=== PATIENT | female | born 1940 | race Caucasian/White ===

== ENCOUNTER 2019-05-16 05:23 | Inpatient (IN) ==
[2019-05-16] MEDS ORDERED: ICU PROTOCOL FOR HYPERGLYCEMIA PRN (07:18)
[2019-05-16] MEDS ORDERED: LABETALOL HCL IV 5 MG/ML 20ML IV STA (07:22)
[2019-05-16] MEDS ORDERED: AMLODIPINE BESYLATE 5 MG TAB PO SCH (09:00)
--- NOTE | 2019-05-16 09:09 | History & Physical Report ---
Date of Service May 16, 2019 Assessment & Plan (1) Hypertensive urgency: blood pressure much improved this AM, received a dose of Labetalol on arrival will start on Norvasc 5mg daily, monitor response, may need to give repeat dose later today use Hydralazine PRN transfer to PCU this morning (2) Right renal mass: 7.7 x 8.0 cm mass on right kidney, abutting the liver presented with hematuria and right flank pain discussed with patient that this would be considered cancer until proven otherwise will consult urology for their recommendations will allow her to eat as there are no immediate surgical issues UA with urine cytology ordered History of Present Illness Chief Complaint: I had blood in my urine Primary Care Provider: MIRTHA PCP 78 yo female with history of glaucoma but otherwise healthy, presented to the ED at [facility] due to right flank pain and blood in her urine. The symptoms started two days prior to her arrival. She said that prior to that she had been doing well, no issues. Her blood pressure will occasionally be high in the doctor's office but she did not have a history of essential HTN. In the ED at [place] her blood pressures were markedly elevated with SBP in the 250-270 range and DBP > 120. She was admitted and treated with Labetalol. She admitted to having a headache with the elevated blood pressure. No changes in vision, no chest pain, no dyspnea. She had a CT of her abdomen/pelvis due to the right flank pain and hematuria. This showed a 7.7 x 8.0 cm mass in the right kidney, abutting the liver, possible liver nodules at that location. Due to renal mass and no urological services, patient and family requested transfer to [facility]. Here in the ICU she is feeling well, denies headache, chest pain, dyspnea, cough, abdominal pain, NVD, peripheral edema, fever/chills/sweats. Her BP is improved to 150-170 systolic. We discussed the recent events and she confirmed that she only had the hematuria and right flank pain for two days, she had been feeling well up until that time. Medical history significant for glaucoma Surgical history significant for hysterectomy 30 years ago No history of smoking or daily alcohol intake Allergies Allergy/AdvReac Type Severity Reaction Status Date / Time chicken derived Allergy Mild dry Verified 05/16/19 07:37 throat, SOB potato Allergy dry Verified 05/16/19 07:18 throat, SOB Home Medications Home Medications Medication Instructions Recorded Confirmed Type brimonidine 1 drp OPHTHALMIC (EYE) BID 05/16/19 05/16/19 History cholecalciferol (vitamin D3) 1,000 unit PO DAILY 05/16/19 05/16/19 History dorzolamide-timolol 1 drp OPHTHALMIC (EYE) BID 05/16/19 05/16/19 History latanoprost 1 drp OPHTHALMIC (EYE) QPM 05/16/19 05/16/19 History multivitamin 1 tab PO DAILY 05/16/19 05/16/19 History omega 3-uns-qir-fish oil [[place]-3] 1 cap PO DAILY 05/16/19 05/16/19 History peg 400-propylene glycol [Systane 1 drp OPHTHALMIC (EYE) QID 05/16/19 05/16/19 History (propylene glycol)] Past Med/Surg History Medical History (Updated 05/16/19 @ 09:08 by Darren Verde DO) Glaucoma Surgical History (Updated 05/16/19 @ 07:26 by Monserrat Christensen RN) History of hysterectomy Family History (Updated 05/16/19 @ 07:27 by Monserrat Christensen RN) Mother Cancer Father Cancer Social History Preferred Language: Belarusian Communication Ability: Effective 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: No Beliefs That Will Affect Care: None Current Living Situation: Alone Other Information That Helps Us Care for You: No Feels Safe at Home: Yes Safety Concerns: Feels Safe At This Time Smoking Status: Never smoker Hx Alcohol Use: No Hx Substance Use: No Review of Systems Review of Systems: All systems reviewed & are unremarkable except as noted in HPI & below Physical Exam Constitutional: WD/WN, vitals as above Eyes: PERRL, conjunctivae normal, anicteric sclerae ENMT: external ear and nose normal, oropharynx normal Neck: trachea midline, no thyromegaly Respiratory: normal respiratory effort, lungs clear to auscultation Cardiovascular: RRR, no murmur, no edema Gastrointestinal (Abdomen): Inspection/Auscultation: abdomen normal to inspection and normal bowel sounds; abdomen not distended Percussion/Palpation: + abdomen tender (mild TTP in RUQ) and abdomen soft; no guarding, abdomen not rigid and no hepatosplenomegaly Musculoskeletal: no cyanosis or clubbing, extremities motor strength 5/5 Skin: no rashes, warm and dry Neurologic: patellar DTR's 2+ bilat, sensation intact and PERRL, EOMI, accommodation nl, no face palsy, no dysarthria Psychiatric: A+Ox3, euthymic affect Genitourinary: + CVA tenderness (mild on right) Lymphatic: no cervical or axillary lymphadenopathy Results & Data Vital Signs (Past 12 Hours) Vital Signs Pulse Pulse Resp BP BP Pulse Ox 05/16/19 08:01 77 27 H 95 05/16/19 08:00 78 21 158/105 H 94 05/16/19 07:50 76 19 95 05/16/19 07:45 81 27 H 195/81 H 95 05/16/19 07:42 77 19 195/90 H 96 05/16/19 07:40 76 17 95 05/16/19 07:31 80 20 96 05/16/19 07:30 82 24 203/82 H 95 05/16/19 07:20 79 19 95 05/16/19 07:18 78 24 95 05/16/19 07:15 80 19 192/83 H 95 05/16/19 07:08 77 22 191/93 H 95 Code Status & VTE Plan VTE Prophylaxis Plan VTE Prophylaxis will be ordered: Yes PG Care Time/CCT Total # of Minutes Spent Total Time Spent with Patient: Total time spent is greater than 50% in coordination of care (as documented) at patient's floor/unit and/or counseling patient:
--- NOTE | 2019-05-16 09:34 | Critical Care Consultation ---
Date of Consultation May 16, 2019 Assessment & Plan (1) Admitted to intensive care unit: Reason Critically Ill: 78-year-old female here for hypertensive urgency, right flank pain, newly discovered right renal mass. Past medical history significant for glaucoma Neuro: -[facility] ICU: NEGATIVE -No concerns at present, mentating well, no vision, hearing, sensory, motor abnormalities Cardiac: Hypertensive urgency: Per report systolic blood pressures were in the 270s and diastolics were greater than 120 at the outside hospital. She was supposedly treated with labetalol and failed to respond. In the [facility] ICU she was given labetalol 10 mg IV and hydralazine and her pressures responded well. Currently she is 158/105 -Start amlodipine 5 mg p.o. daily Elevated troponin: Patient with elevated troponin at the outside hospital without significant EKG changes. Repeat troponin obtained in our hospital still elevated at 1.350 suspect likely secondary to demand ischemia -Trend troponins Elevated BNP: Likely secondary to patient demographics elderly female. No overt signs or symptoms of heart failure. -Monitor for now Respiratory: -No concerns GI: -No concerns RENAL/LYTES: -No significant electrolyte derangement. -Replace lytes as needed. Renal mass: Depending upon anatomical location may be pressing on her adrenal gland resulting in elevated blood pressures. Will need urology consult -Consult urology : -As above ENDO: -No concerns at present HEME: -Stable H&H. ID: - No concerns for infection at this point. -Monitor fever curve. LINES/IV ACCESS: -PIVs intact. DVT PROPHYLAXIS: -SCD's Dispo: Downgrade to general medical floors Thank you for allowing us to be part of this patient's care. Please refer to Dr. Oh's documentation for any further recommendations. Supervising Physician Co-Signing Physician Notes Dr. Barrera was the resident-physician during care of patient. I separately evaluated patient for tucker portions of the history and the exam. I was present during the critical portion of medical decision making, and I discussed the case with the resident. I generally agree with the findings and plan except for any additions/exceptions noted. Patient was transferred to our hospital due to concerns of hypertensive emergency/urgency. Patient's blood pressure improved nicely with labetalol. She does have a mass on her right kidney with possible evidence of metastatic disease which we are suspecting of the renal cell carcinoma. She did have some hematuria at the outside hospital, but apparently this is resolved. We will r epeat a urine analysis and a basic metabolic panel here. We have ordered for 5 mg of amlodipine to be given daily. She also has a troponin elevation that we will continue to trend. EKG with no obvious evidence of acute ischemia. This is likely related to her hypertension. Will consult cardiology. Urology is consulted for the mass. Patient is safe to be transferred to the floor with telemetry. History of Present Illness Attending Physician: Darren Verde DO History of Present Illness 78-year-old female with a with no significant past medical history with exception of glaucoma. She presented to the emergency department in [facility] ED on 05/14 status post hematuria for 2 days with associated right flank plain. Patient reports no issues prior to this, she had been her normal state of health, and feeling well. When she has her blood pressure measured in the doctor's office it will occasionally be high secondary to self diagnosed whitecoat hypertension. In the [place] emergency department her blood pressure was elevated to 250/120. She was admitted and treated with labetalol without significant response. On admission she endorsed a headache with associated elevated blood pressure. No change in vision, no chest pain, no dyspnea, no dysarthria, no other concerning signs or symptoms. A CT was performed of her abdomen and pelvis secondary to the right flank pain and hematuria. Demonstrating a 7.7 x 8 centimeter mass on the right kidney. She was transferred to [facility] secondary to the suspected renal mass, and hypertensive urgency. In the ICU she is doing well, denies chest pain, dyspnea, cough, abdominal pain, nausea vomiting diarrhea, change in vision, change in hearing, motor symptoms, sensory symptoms, she does endorse a slight headache that was relieved with Tylenol. She is tolerating her diet, voiding on her own, stooling on her own, slept okay overnight. All questions answered no acute concerns Allergies Allergy/AdvReac Type Severity Reaction Status Date / Time chicken derived Allergy Mild dry Verified 05/16/19 07:37 throat, SOB potato Allergy dry Verified 05/16/19 07:18 throat, SOB Home Medications Home Medications Medication Instructions Recorded Confirmed Type brimonidine 1 drp OPHTHALMIC (EYE) BID 05/16/19 05/16/19 History cholecalciferol (vitamin D3) 1,000 unit PO DAILY 05/16/19 05/16/19 History dorzolamide-timolol 1 drp OPHTHALMIC (EYE) BID 05/16/19 05/16/19 History latanoprost 1 drp OPHTHALMIC (EYE) QPM 05/16/19 05/16/19 History multivitamin 1 tab PO DAILY 05/16/19 05/16/19 History omega 9-fah-rxj-fish oil [[place]-3] 1 cap PO DAILY 05/16/19 05/16/19 History peg 400-propylene glycol [Systane 1 drp OPHTHALMIC (EYE) QID 05/16/19 05/16/19 History (propylene glycol)] Patient History Medical History Glaucoma Surgical History History of hysterectomy Family History Mother Cancer Father Cancer Social History Preferred Language: Surinamese Communication Ability: Effective Mucker Operator Required: No Beliefs That Will Affect Care: None Current Living Situation: Alone Other Information That Helps Us Care for You: No Feels Safe at Home: Yes Safety Concerns: Feels Safe At This Time Smoking Status: Never smoker Hx Alcohol Use: No Hx Substance Use: No Physical Exam Physical Exam: General: No acute distress HEENT: Normocephalic atraumatic Neck: No significant lymphadenopathy, trachea midline, normal to visual inspection Cardiac: Regular rate and rhythm, normal S1, normal S2, I did not appreciated any significant murmurs rubs or gallops, I did not appreciate any significant pedal edema, No calf tenderness, capillary refill is less than 3 seconds Respiratory: Clear to auscultation bilaterally with symmetrical chest rise, I did not appreciate any significant wheezes, rales, rhonchi, no increased work of breathing GI: Tender to palpation right upper quadrant/flank normal bowel sounds, soft, nontender MSK: No sensory or motor changes, moves all extremities without issue, extremities are warm and well-perfused Skin: [place], clean, dry, intact. Neuro: Alert and oriented x4 Psych: Calm, cooperative, logical thought process Results & Data Vital Signs (Past 12 Hours) Vital Signs Pulse Pulse Resp BP BP Pulse Ox 05/16/19 08:01 77 27 H 95 05/16/19 08:00 78 21 158/105 H 94 05/16/19 07:50 76 19 95 05/16/19 07:45 81 27 H 195/81 H 95 05/16/19 07:42 77 19 195/90 H 96 05/16/19 07:40 76 17 95 05/16/19 07:31 80 20 96 05/16/19 07:30 82 24 203/82 H 95 05/16/19 07:20 79 19 95 05/16/19 07:18 78 24 95 05/16/19 07:15 80 19 192/83 H 95 05/16/19 07:08 77 22 191/93 H 95 Laboratory Results 05/16/19 05/16/19 Range/Units 08:08 08:00 POC Glucose 121 H (70-99) Nasal Screen MRSA (PCR) Negative (Negative) Medications Administered Current Inpatient Medications Acetaminophen (Tylenol) 500 mg PO Q4H PRN PRN Reason: Pain Stop: 06/15/19 08:31 Last Admin: 05/16/19 10:00 Dose: 500 mg Documented by: Amlodipine Besylate (Norvasc) 5 mg PO QAM ISIDRO Stop: 06/15/19 08:59 Last Admin: 05/16/19 09:58 Dose: 5 mg Documented by: Miscellaneous (Icu Protocol For Hyperglycemia) 1 ea N/A PRN PRN; Protocol PRN Reason: Hyperglycemia Protocol Stop: 05/18/19 07:17 Resident Activity Tracking Resident Involvement: Resident Care Provided Care Provided: Adult Hospital Medicine
[2019-05-16 09:47] LABS: Basophils # (auto) 0.02 K/uL (0-0.2); Basophils % (auto) 0.2 %; Eosinophils # (auto) 0.08 K/uL (0-0.5); Eosinophils % (auto) 0.9 %; Hematocrit (blood only) 40.2 % (37-47); Hemoglobin 13.1 g/dL (12.0-16.0); Immature Granulocytes # (auto) 0.01 K/uL (0.00-0.02); Immature Granulocytes % (auto) 0.1 %; Lymphocytes # (auto) 1.44 K/uL (1.2-3.4); Lymphocytes % (auto) 16.1 %; Mean Corpuscular Hemoglobin 29.1 pg (25-34); Mean Corpuscular Volume 89.3 fL (80-100); Monocytes # (auto) 0.68 K/uL (0.11-0.59); Monocytes % (auto) 7.6 %; Neutrophils # (auto) 6.73 K/uL (1.4-6.5); Neutrophils % (auto) 75.1 %; Platelet Count 190 K/uL (130-400); RDW Coefficient of Variation 13.8 % (11.5-14.5); White Blood Count 8.96 K/uL (4.8-10.8)
[2019-05-16 09:49] LABS: Mean Corpuscular Hgb Conc 32.6 g/dL (32-36)
[2019-05-16 09:57] LABS: Partial Thromboplastin Ratio 0.9; Partial Thromboplastin Time 24.6 Seconds (21.0-31.0); Prothrombin Time 10.2 Seconds (9.0-12.0)
[2019-05-16] MEDS: ACETAMINOPHEN 500 MG TAB PO PRN (10:00)
[2019-05-16 10:03] LABS: BUN Creatinine Ratio 14.6 (10-20); Blood Urea Nitrogen 15 mg/dl (7-18); Calcium 9.6 mg/dl (8.5-10.1); Carbon Dioxide 25 mmol/L (21-32); Chloride 111 mmol/L (98-107); Creatinine Clr Calc Pharmacy 44.8 ml/min; Est GFR (African American) 62.4; Est GFR (Non-African American) 53.8; Glucose 110 mg/dl (70-99); Magnesium 2.2 mg/dl (1.8-2.4); Potassium 3.5 mmol/L (3.5-5.1); Sodium 143 mmol/L (136-145)
--- NOTE | 2019-05-16 10:09 | Billing Data ---
Coding Level of Care Code 13875 Initial Inpt Care Lvl 3
[2019-05-16 10:13] LABS: Creatine Kinase MB 3.6 ng/ml (0.5-3.6); NT Pro B Type Natriuretic Pept 2469 pg/ml (0-1800); Phosphorus 3.1 mg/dl (2.5-4.9)
[2019-05-16] MEDS ORDERED: HydrALAZINE HCL 20 MG/ML VIAL IV ONE (10:42)
--- NOTE | 2019-05-16 11:20 | Urology Consultation ---
Date of Consultation May 16, 2019 Assessment & Plan (1) Right renal mass: 78yo F with cardiac issues, hypertensive urgency, found to have large right renal mass. Reviewed with Dr. Galo. CT reveals 8.3 x 7.6 x 6.5 cm right renal mass consistent with RCC; suspected vascular invasion of right renal vein. CT chest - no sign of metastasis. Okay to allow diet. Will send CMP in AM to evaluate alk/phos, potential liver involment. Urine cytology pending per primary team. Pt wishes to follow with Dr. Holden per family request if feasible. Will continue to follow closely. (2) Hypertensive urgency: History of Present Illness Reason for Consultation: renal mass Requesting Physician: Dr. Verde Attending Physician: Darren Verde, DO History of Present Illness 78yo F transferred from [facility] secondary to CT imaging findings. Pt was found to have gross hematuria and right flank pain x1 week. CT angio completed for hypertension purposes, reveals large right renal mass. Upon admission to [facility], CT abd/pelvis renal mass protocol completed which reveals 8.3 x 7.6 x 6.5 cm right renal mass consistent with renal cell carcinoma. There is suspected vascular invasion of the right renal vein with secondary formation of extensive collateral right perinephric vasculature. CT chest - no sign of metastasis. Pt is resting comfortably in bed today, no family members at bedside. She is alert, oriented and appropriate decision making abilities. States her right flank pain has improved, voiding spontaneously without difficult. Unable to assess urine today, unsure if continues to have hematuria. Denies any previous history. No family hx of kidney or bladder cancer. Allergies Allergy/AdvReac Type Severity Reaction Status Date / Time chicken derived Allergy Mild dry Verified 05/16/19 07:37 throat, SOB potato Allergy dry Verified 05/16/19 07:18 throat, SOB Home Medications Home Medications Medication Instructions Recorded Confirmed Type brimonidine 1 drp OPHTHALMIC (EYE) BID 05/16/19 05/16/19 History cholecalciferol (vitamin D3) 1,000 unit PO DAILY 05/16/19 05/16/19 History dorzolamide-timolol 1 drp OPHTHALMIC (EYE) BID 05/16/19 05/16/19 History latanoprost 1 drp OPHTHALMIC (EYE) QPM 05/16/19 05/16/19 History multivitamin 1 tab PO DAILY 05/16/19 05/16/19 History omega 0-lld-ssr-fish oil [[place]-3] 1 cap PO DAILY 05/16/19 05/16/19 History peg 400-propylene glycol [Systane 1 drp OPHTHALMIC (EYE) QID 05/16/19 05/16/19 History (propylene glycol)] Patient History Medical History Glaucoma Surgical History History of hysterectomy Family History Mother Cancer Father Cancer Social History Preferred Language: Yemeni Communication Ability: Effective Ecmo Specialist Required: No Beliefs That Will Affect Care: None Current Living Situation: Alone Other Information That Helps Us Care for You: No Feels Safe at Home: Yes Safety Concerns: Feels Safe At This Time Smoking Status: Never smoker Hx Alcohol Use: No Hx Substance Use: No Review of Systems Review of Systems: All systems reviewed & are unremarkable except as noted in HPI & below Physical Exam Constitutional: no acute distress and not ill appearing Eyes: no nystagmus ENMT: Ears: no hearing impairment Neck: trachea midline Respiratory: no respiratory distress and no cough Cardiovascular: Vessels: no JVD Chest (Breasts): Chest: normal inspection of chest Gastrointestinal (Abdomen): Inspection/Auscultation: abdomen not distended and no abdominal edema Percussion/Palpation: abdomen soft; abdomen nontender Musculoskeletal: Head/Neck/Chest: normocephalic and head atraumatic Skin: no rashes, warm and dry Neurologic: awake; not confused and not obtunded Psychiatric: Orientation: alert and oriented x 3 Eye Contact: good eye contact Affect: no depressed affect Lymphatic: no lymphadenopathy and no lymphedema Results & Data Vital Signs (Past 12 Hours) Vital Signs Pulse Pulse Resp BP BP Pulse Ox 05/16/19 08:01 77 27 H 95 05/16/19 08:00 78 21 158/105 H 94 05/16/19 07:50 76 19 95 05/16/19 07:45 81 27 H 195/81 H 95 05/16/19 07:42 77 19 195/90 H 96 05/16/19 07:40 76 17 95 05/16/19 07:31 80 20 96 05/16/19 07:30 82 24 203/82 H 95 05/16/19 07:20 79 19 95 05/16/19 07:18 78 24 95 05/16/19 07:15 80 19 192/83 H 95 05/16/19 07:08 77 22 191/93 H 95 PG Care Time/CCT Total # of Minutes Spent Total Time Spent with Patient: Total time spent is greater than 50% in coordination of care (as documented) at patient's floor/unit and/or counseling patient:
[2019-05-16] MEDS ORDERED: IOVERSOL 100ml IV PRN (12:47)
[2019-05-16] MEDS ORDERED: LABETALOL HCL IV 5 MG/ML 20ML IV ONE (13:41)
--- NOTE | 2019-05-16 13:41 | CT Scan Report ---
CT chest w con CT DOSE: HISTORY: renal mass r/o metastatic disease TECHNIQUE: Multiaxial CT images of the chest were performed following the intravenous administration of contrast. A dose lowering technique was utilized adhering to the principles of ALARA. COMPARISON: None. FINDINGS: The lungs are clear. The mediastinal vascular structures are within normal limits. No media stinal or hilar lymphadenopathy. No pleural effusion or pneumothorax. Limited views of the upper abdo men demonstrate a potential right renal mass IMPRESSION: 1. No abnormality of the chest. 2. No evidence of metastatic disease within the chest. 3. Probable right renal mass. 4. Nonspecific hypodensity measuring 2.7 cm anterior right hepatic lobe. The above report was generated using voice recognition software. It may contain grammatical, syntax or spelling errors. Electronically signed by: Edwin Rice M.D. 05/16/2019 1:40 PM
[2019-05-16] MEDS ORDERED: AMLODIPINE BESYLATE 5 MG TAB PO STA (13:44)
[2019-05-16] MEDS: LABETALOL HCL IV 5 MG/ML 20ML IV PRN ×2 (13:45→21:13)
--- NOTE | 2019-05-16 14:01 | CT Scan Report ---
CT abdomen pelvis wo/w con CLINICAL HISTORY: 78 years-old Female presenting with renal mass. TECHNIQUE: Multidetector CT of the abdomen and pelvis was performed before and after the administrati on of intravenous contrast. IV contrast: 95 mL of Optiray 320. One or more dose lowering techniques w ere used consistent with the principles of ALARA (as low as reasonably achievable), including automat ic exposure control, mA or kV adjustment to individual patient size, and/or use of iterative reconstr uction. COMPARISON: None. CT DOSE (mGy.cm): The estimated cumulative dose is 932.26 mGycm. FINDINGS: It Risk Advisor topogram: Unremarkable. Lung bases: Borderline cardiac enlargement. Trace left pleural effusion. Minimal dependent changes li haritha atelectasis. Liver: Normal morphology. Multilobular well-defined hypodense lesion in the anterior left hepatic lob e likely hepatic cyst. No other focal lesion. Patent hepatic vasculature. Biliary: No intrahepatic or extrahepatic biliary ductal dilatation. Normal gallbladder. Pancreas: Moderate parenchymal atrophy. Spleen: Calcification in the spleen may relate to an intrasplenic aneurysm or other benign lesion. No rmal size. Adrenal glands: Mild thickening of the adrenal glands. No focal nodule to suggest an underlying lesio n. Kidneys and ureters: Heterogeneously enhancing mass within the right kidney primarily in the interpol ar region measuring 8.3 x 7.6 x 6.5 cm. Adjacent mass effect on the inferior right hepatic lobe witho ut gross evidence of invasion. Prominent perinephric vessels. There is no kaylen invasion of the renal sinus. There is expansion of the right renal vein with suspected tumor thrombus. The collecting syst em on the right does not appear expanded. Calcification in the right kidney may be associated with th e mass or represent a nonobstructing calculus. The left kidney is essentially normal apart from a sma ll cyst at the lower pole. No left nephrolithiasis or hydronephrosis. The left kidney may have a dupl icated collecting system. Ureters are otherwise normal.. Bladder: Normal. Pelvic organs: Uterus surgically absent. Bowel: Diverticulosis of the mid to distal sigmoid colon without wall thickening or pericolonic infla mmatory change. The appendix is top normal in diameter measuring 6 mm though otherwise normal. The ap pendix is fluid-filled. No bowel obstruction. Peritoneal cavity: No free fluid or intraperitoneal gas. Lymph nodes: No enlarged lymph nodes in the abdomen or pelvis. Vasculature: Atherosclerosis of the normal caliber abdominal aorta. IVC patent. Suspected enhancing t umor thrombus within the right renal vein as mentioned, which is expanded. Numerous perinephric varic es or collateral vessels are evident on the right. Abdominal wall: Normal. Musculoskeletal: Degenerative changes of the spine. IMPRESSION: 1. 8.3 x 7.6 x 6.5 cm right renal mass consistent with renal cell carcinoma. There is suspected vasc ular invasion of the right renal vein with secondary formation of extensive collateral right perineph laura vasculature. 2. No lymphadenopathy or other evidence of metastatic disease. Electronically signed by: Saul Gatica M.D. 05/16/2019 2:00 PM
--- NOTE | 2019-05-16 14:24 | Cardiology Consultation ---
Date of Consultation May 16, 2019 Assessment & Plan (1) Hypertensive urgency: - Pt has a verbal history of syncope after receiving too much anti-HTN medication in outside hospital; allow for permissive HTN to decrease risk of watershed infarct. - Would recommend labetalol 10mg IV q6h scheduled, hydralazine 10mg IV q2h PRN. Continue amlodipine 5mg PO daily. - Frequent monitoring of BP recommended. - Pt's HTN likely due in some part to her renal mass. Ultimate determination by urology. (2) Elevated troponin: - Will continue to trend troponin q8h next draw at 830PM today. - Echocardiogram completed and will review. Supervising Physician Co-Signing Physician Notes I was present with the above resident, Dr. Lao, during the history and physical examination of this patient. I have personally performed the physical exam and assisted in decision making activities related to the patients care. I have reviewed and agree with the findings and plan as documented in Dr. Lao's note. Any exceptions or clarifications are listed here: None Impression and plan 1. Hypertensive urgency-would keep intravenous labetalol on a scheduled dose as noted above. Agree with amlodipine daily. 2. Elevated troponin-suspect a supply demand mismatch realizing her significant hypertension in the face of LVH. 3. Right renal mass-likely a component of her hypertensive picture. History of Present Illness Reason for Consultation: Elevated troponin Requesting Physician: Santi Barrera DO Attending Physician: Darren Verde DO History of Present Illness 78 yo F no significant PMHx presented from outside hospital for hypertensive urgency BP 270/120s refractory to IV labetalol treatment, also with hematuria and right flank pain. Found to have troponin elevated to 1.35 -> 1.5. In [facility] ICU given labetalol 10 mg IV and hydralazine 5mg both one dose and her pressures decreased to now currently 150s/100s. CT abdomen showed 7.7 x 8.0 cm R kidney m ass. Cardiology consulted for elevated troponins. On interview pt reports no prior cardiac history. Went to urgent care for blood in her urine and right sided abdominal pain and was sent to ED where it was incidentally found that her BP was extremely high. Reports that she had a "small headache" when she was in [facility] ED, but no CP SOB palpitations. States that when she was at [facility] after they gave her "a bunch of blood pressure medications" she felt faint and felt like she passed out. At this time pt denies CP SOB palpitations headache dizziness. At home is normally very active and can climb multiple flights of stairs, works outside in her yard, and can walk multiple blocks without feeling SOB. No orthopnea. Reports a history of white coat hypertension, but herself and her granddaughter who is a nurse check her BP frequently with an arm cuff that they had calibrated at the primary care doctor's office and at home her BP runs in the 130-140s/70-80s. No history of smoking. Allergies Allergy/AdvReac Type Severity Reaction Status Date / Time chicken derived Allergy Mild dry Verified 05/16/19 07:37 throat, SOB potato Allergy dry Verified 05/16/19 07:18 throat, SOB Home Medications Home Medications Medication Instructions Recorded Confirmed Type brimonidine 1 drp OPHTHALMIC (EYE) BID 05/16/19 05/16/19 History cholecalciferol (vitamin D3) 1,000 unit PO DAILY 05/16/19 05/16/19 History dorzolamide-timolol 1 drp OPHTHALMIC (EYE) BID 05/16/19 05/16/19 History latanoprost 1 drp OPHTHALMIC (EYE) QPM 05/16/19 05/16/19 History multivitamin 1 tab PO DAILY 05/16/19 05/16/19 History omega 5-goa-ucx-fish oil [[place]-3] 1 cap PO DAILY 05/16/19 05/16/19 History peg 400-propylene glycol [Systane 1 drp OPHTHALMIC (EYE) QID 05/16/19 05/16/19 History (propylene glycol)] Patient History Medical History Glaucoma Surgical History History of hysterectomy Family History Mother Cancer Father Cancer Social History Preferred Language: Japanese Communication Ability: Effective Millinery Copyist Required: No Beliefs That Will Affect Care: None Current Living Situation: Alone Other Information That Helps Us Care for You: No Feels Safe at Home: Yes Safety Concerns: Feels Safe At This Time Smoking Status: Never smoker Hx Alcohol Use: No Hx Substance Use: No Review of Systems Constitutional: no fever and no chills Respiratory: no cough, no dyspnea and no wheezing Cardiovascular: no chest pain, no palpitations and no edema Gastrointestinal: no abdominal pain (abdominal pain she had at [facility] has dissipated), no nausea, no vomiting, no constipation and no diarrhea/loose stools Genitourinary: no dysuria and no hematuria (none at this time, however had hematuria at urgent care three days ago) Neurologic: no dizziness Physical Exam Constitutional: WD/WN, vitals as above Respiratory: normal respiratory effort, lungs clear to auscultation Cardiovascular: RRR, no murmur, no edema Vessels: no carotid bruit Gastrointestinal (Abdomen): normal bowel sounds, soft, nontender, no hepato splenomegaly Skin: no rashes, warm and dry Psychiatric: A+Ox3, euthymic affect Results & Data Vital Signs (Past 12 Hours) Vital Signs Pulse Pulse Resp BP BP Pulse Ox 05/16/19 08:01 77 27 H 95 05/16/19 08:00 78 21 158/105 H 94 05/16/19 07:50 76 19 95 05/16/19 07:45 81 27 H 195/81 H 95 05/16/19 07:42 77 19 195/90 H 96 05/16/19 07:40 76 17 95 05/16/19 07:31 80 20 96 05/16/19 07:30 82 24 203/82 H 95 05/16/19 07:20 79 19 95 05/16/19 07:18 78 24 95 05/16/19 07:15 80 19 192/83 H 95 05/16/19 07:08 77 22 191/93 H 95 Laboratory Results Laboratory Results - last 24 hr 05/16/19 05/16/19 05/16/19 08:00 08:00 08:08 WBC RBC Hgb Hct MCV MCH MCHC RDW Std Deviation RDW Coeff of Anatoliy Plt Count MPV Immature Gran % (Auto) Neut % (Auto) Lymph % (Auto) [place] % (Auto) Eos % (Auto) Baso % (Auto) Immature Gran # (Auto) Neut # (Auto) Lymph # (Auto) [place] # (Auto) Eos # (Auto) Baso # (Auto) PT INR APTT PTT Ratio Sodium Potassium Chloride Carbon Dioxide Anion Gap BUN Creatinine Est Cr Clr Drug Dosing Est GFR ( Amer) Est GFR (Non-Af Amer) BUN/Creatinine Ratio Glucose POC Glucose 121 H Calcium Phosphorus Magnesium CK-MB (CK-2) Troponin I NT-Pro-B Natriuret Pep Urine Color Pending Urine Appearance Pending Urine pH Pending Ur Specific [place] Pending Urine Protein Pending Urine Glucose (UA) Pending Urine Ketones Pending Urine Blood Pending Urine Nitrite Pending Urine Bilirubin Pending Urine Urobilinogen Pending Ur Leukocyte Esterase Pending Nasal Screen MRSA (PCR) Negative 05/16/19 05/16/19 05/16/19 09:35 09:35 09:35 WBC 8.96 RBC 4.50 Hgb 13.1 Hct 40.2 MCV 89.3 MCH 29.1 MCHC 32.6 RDW Std Deviation 45.0 RDW Coeff of Anatoliy 13.8 Plt Count 190 MPV 11.0 H Immature Gran % (Auto) 0.1 Neut % (Auto) 75.1 Lymph % (Auto) 16.1 [place] % (Auto) 7.6 Eos % (Auto) 0.9 Baso % (Auto) 0.2 Immature Gran # (Auto) 0.01 Neut # (Auto) 6.73 H Lymph # (Auto) 1.44 [place] # (Auto) 0.68 H Eos # (Auto) 0.08 Baso # (Auto) 0.02 PT 10.2 INR 1.0 APTT 24.6 PTT Ratio 0.9 Sodium 143 Potassium 3.5 Chloride 111 H Carbon Dioxide 25 Anion Gap 7.0 BUN 15 Creatinine 0.99 Est Cr Clr Drug Dosing 44.8 Est GFR ( Amer) 62.4 Est GFR (Non-Af Amer) 53.8 BUN/Creatinine Ratio 14.6 Glucose 110 H POC Glucose Calcium 9.6 Phosphorus 3.1 Magnesium 2.2 CK-MB (CK-2) 3.6 Troponin I 1.350 H* NT-Pro-B Natriuret Pep 2469 H Urine Color Urine Appearance Urine pH Ur Specific [place] Urine Protein Urine Glucose (UA) Urine Ketones Urine Blood Urine Nitrite Urine Bilirubin Urine Urobilinogen Ur Leukocyte Esterase Nasal Screen MRSA (PCR) 05/16/19 12:35 WBC RBC Hgb Hct MCV MCH MCHC RDW Std Deviation RDW Coeff of Anatoliy Plt Count MPV Immature Gran % (Auto) Neut % (Auto) Lymph % (Auto) [place] % (Auto) Eos % (Auto) Baso % (Auto) Immature Gran # (Auto) Neut # (Auto) Lymph # (Auto) [place] # (Auto) Eos # (Auto) Baso # (Auto) PT INR APTT PTT Ratio Sodium Potassium Chloride Carbon Dioxide Anion Gap BUN Creatinine Est Cr Clr Drug Dosing Est GFR ( Amer) Est GFR (Non-Af Amer) BUN/Creatinine Ratio Glucose POC Glucose Calcium Phosphorus Magnesium CK-MB (CK-2) Troponin I 1.500 H* NT-Pro-B Natriuret Pep Urine Color Urine Appearance Urine pH Ur Specific [place] Urine Protein Urine Glucose (UA) Urine Ketones Urine Blood Urine Nitrite Urine Bilirubin Urine Urobilinogen Ur Leukocyte Esterase Nasal Screen MRSA (PCR) Medications Administered Current Medications Acetaminophen (Tylenol) 500 mg PO Q4H PRN PRN Reason: Pain Stop: 06/15/19 08:31 Last Admin: 05/16/19 10:00 Dose: 500 mg Documented by: Amlodipine Besylate (Norvasc) 5 mg PO QAM ISIDRO Stop: 06/15/19 08:59 Last Admin: 05/16/19 09:58 Dose: 5 mg Documented by: Ioversol (Optiray 320 100ml) 95 ml IV ONCE PRN PRN Reason: Interaction Checking Stop: 05/20/19 12:46 Last Admin: 05/16/19 12:52 Dose: 95 ml Documented by: Labetalol HCl (Normodyne) 10 mg IV Q6 PRN PRN Reason: Blood Pressure - High Stop: 06/15/19 13:31 Last Admin: 05/16/19 13:45 Dose: 10 mg Documented by: PG Care Time/CCT Total # of Minutes Spent Total Time Spent with Patient: Total time spent is greater than 50% in coordination of care (as documented) at patient's floor/unit and/or counseling patient: Resident Activity Tracking Resident Involvement: Resident Care Provided Care Provided: Adult Hospital Medicine
[2019-05-16 15:11] LABS: Appearance Urine Clear (Clear); Bilirubin Urine Negative (Negative); Blood Urine 1+ (Negative); Color Urine Yellow; Glucose Urine UA Negative (Negative); Ketones Urine Negative (Negative); Leukocyte Esterase Urine Trace (Negative); Nitrite Urine Negative (Negative); Protein Urine Negative (Negative); Specific Gravity Urine 1.012 (1.000-1.030); Urobilinogen Urine Negative (Negative); pH Urine 7.5 (4.5-7.5)
[2019-05-16 15:30] LABS: RBC Urine Automated 0-4 /hpf (0-4)
[2019-05-16 15:31] LABS: Bacteria Urine Automated Negative (Negative); Cast Urine Automated 0 /lpf (0-5)
[2019-05-16] MEDS: LATANOPROST 0.005% OP SOLN 2.5 ML BTL OP SCH (21:40)
[2019-05-16] MEDS: DORZOLAMIDE/TIMOLOL 22.3/6.8MG/ML 10 ML BTL OP SCH (23:58)
[2019-05-16] MEDS: BRIMONIDINE TARTRATE-P 0.15% 5 ML BTL OP SCH (23:58)
[2019-05-17 04:40] LABS: Basophils # (auto) 0.05 K/uL (0-0.2); Basophils % (auto) 0.6 %; Eosinophils # (auto) 0.19 K/uL (0-0.5); Eosinophils % (auto) 2.2 %; Hematocrit (blood only) 38.3 % (37-47); Hemoglobin 12.6 g/dL (12.0-16.0); Immature Granulocytes # (auto) 0.01 K/uL (0.00-0.02); Immature Granulocytes % (auto) 0.1 %; Lymphocytes # (auto) 1.64 K/uL (1.2-3.4); Lymphocytes % (auto) 18.8 %; Mean Corpuscular Hemoglobin 29.8 pg (25-34); Mean Corpuscular Hgb Conc 32.9 g/dL (32-36); Mean Corpuscular Volume 90.5 fL (80-100); Mean Platelet Volume 10.6 fL (7.4-10.4); Monocytes # (auto) 0.85 K/uL (0.11-0.59); Monocytes % (auto) 9.7 %; Neutrophils # (auto) 5.99 K/uL (1.4-6.5); Neutrophils % (auto) 68.6 %; Platelet Count 190 K/uL (130-400); RDW Coefficient of Variation 13.8 % (11.5-14.5); RDW Standard Deviation 45.6 fL (36.4-46.3); Red Blood Count 4.23 M/uL (4.2-5.4); White Blood Count 8.73 K/uL (4.8-10.8)
[2019-05-17] MEDS: LABETALOL HCL IV 5 MG/ML 20ML IV PRN ×2 (04:49→12:14)
[2019-05-17 05:01] LABS: Albumin Level 3.1 gm/dl (3.4-5.0); BUN Creatinine Ratio 15.5 (10-20); Calcium 8.4 mg/dl (8.5-10.1); Creatinine Clr Calc Pharmacy 44.8 ml/min; Est GFR (African American) 62.4; Est GFR (Non-African American) 53.8; Magnesium 2.1 mg/dl (1.8-2.4); Potassium 3.2 mmol/L (3.5-5.1)
[2019-05-17 05:14] LABS: Albumin Globulin Ratio 1.1 (0.9-2); Bilirubin,Total 0.6 mg/dl (0.2-1); Globulin 2.7 gm/dl (2.5-4.0); Phosphorus 3.5 mg/dl (2.5-4.9); Total Protein 5.8 gm/dl (6.4-8.2); Troponin I 1.29 ng/ml (0-0.045)
[2019-05-17] MEDS ORDERED: POTASSIUM CHLORIDE 20 MEQ TABCR PO STA (05:34)
[2019-05-17] MEDS ORDERED: ICU ELECTROLYTE REPLACEMENT PROTOCOL PRN (06:06)
[2019-05-17] MEDS: LABETALOL HCL 100 MG TAB PO SCH ×3 (06:16→19:15)
[2019-05-17] MEDS ORDERED: LABETALOL HCL 100 MG TAB PO SCH (09:00)
[2019-05-17] MEDS: BRIMONIDINE TARTRATE-P 0.15% 5 ML BTL OP SCH ×2 (09:03→21:26)
[2019-05-17] MEDS: DORZOLAMIDE/TIMOLOL 22.3/6.8MG/ML 10 ML BTL OP SCH ×2 (09:04→21:26)
[2019-05-17] MEDS: AMLODIPINE BESYLATE 5 MG TAB PO SCH (09:06)
[2019-05-17] MEDS ORDERED: POTASSIUM CHLORIDE 20 MEQ TABCR PO ONE (10:00)
--- NOTE | 2019-05-17 10:01 | Cardiology Progress Note ---
Date of Service May 17, 2019 Assessment & Plan (1) Hypertensive urgency: - Pt's BP normalized at this time on labetalol 100mg PO BID, amlodipine 10mg daily. - Pt will have MRI abdomen today to better visualize this renal mass. - Suspect sudden rise in BP due in part to renal mass; MRI will better differentiate if renal vasculature involvement. (2) Elevated troponin: - Troponins peaked and are downtrending. No need for further monitoring. - Echocardiogram completed: mild MR, mild LVH, EF 55-60%, LV function normal, no wall motion abnormalities (3) Pre-operative cardiovascular examination: - Pt is at acceptable cardiac risk for surgery given her comorbidities and current clinical exam. Supervising Physician Co-Signing Physician Notes I was present with the above resident, Dr. Lao, during the history and physical examination of this patient. I have personally performed the physical exam and assisted in decision making activities related to the patients care. I have reviewed and agree with the findings and plan as documented in Dr. Lao's note. Any exceptions or clarifications are listed here: None Impression and plan 1. Hypertensive urgency-adequate control on her current regimen. 2. Elevated troponin-suspect a supply demand mismatch. 3. Right renal mass-likely a component of her hypertensive picture. 4. Operative risk-the patient is an acceptable cardiac risk for surgery if necessary. Subjective Pt without acute events overnight. No more headache, no CP SOB palpitations. For MRI abdomen today. Review of Systems Constitutional: no fever, no chills and no malaise Respiratory: no cough, no dyspnea and no wheezing Cardiovascular: no chest pain, no palpitations and no edema Gastrointestinal: no abdominal pain Genitourinary: no hematuria Physical Exam Constitutional: WD/WN, vitals as above Respiratory: normal respiratory effort, lungs clear to auscultation Cardiovascular: RRR, no murmur, no edema Vessels: no carotid bruit Gastrointestinal (Abdomen): normal bowel sounds, soft, nontender, no hepatosplenomegaly Skin: no rashes, warm and dry Psychiatric: A+Ox3, euthymic affect Results & Data Vital Signs (Past 12 Hours) Vital Signs Temp Pulse Resp BP Pulse Ox 05/17/19 09:00 73 15 143/69 H 95 05/17/19 08:30 74 16 139/66 95 05/17/19 08:00 36.9 C 73 12 158/73 H 93 05/17/19 07:30 71 16 157/90 H 96 05/17/19 07:01 68 15 96 05/17/19 07:00 71 19 189/86 H 94 05/17/19 06:30 68 14 212/86 H 97 05/17/19 06:00 68 16 194/84 H 96 05/17/19 05:30 68 15 186/76 H 95 05/17/19 05:00 71 14 184/82 H 95 05/17/19 04:48 78 17 202/82 H 96 05/17/19 04:30 78 16 202/88 H 94 05/17/19 04:00 75 15 181/89 H 94 05/17/19 03:30 71 13 168/77 H 95 05/17/19 03:00 78 17 182/86 H 95 05/17/19 02:30 76 15 160/81 H 94 05/17/19 02:00 74 16 195/86 H 95 05/17/19 01:30 77 14 186/84 H 95 05/17/19 01:00 72 17 176/87 H 93 05/17/19 00:30 72 17 175/71 H 95 05/17/19 00:20 72 13 158/80 H 94 05/17/19 00:00 36.5 C 75 15 193/87 H 96 05/16/19 23:30 76 18 167/71 H 95 05/16/19 23:00 72 15 154/65 H 93 05/16/19 22:30 74 16 151/62 H 92 Laboratory Results Laboratory Results - last 24 hr 05/16/19 05/16/19 05/16/19 08:00 09:35 12:35 WBC RBC Hgb Hct MCV MCH MCHC RDW Std Deviation RDW Coeff of Anatoliy Plt Count MPV Immature Gran % (Auto) Neut % (Auto) Lymph % (Auto) [place] % (Auto) Eos % (Auto) Baso % (Auto) Immature Gran # (Auto) Neut # (Auto) Lymph # (Auto) [place] # (Auto) Eos # (Auto) Baso # (Auto) Sodium Potassium Chloride Carbon Dioxide Anion Gap BUN Creatinine Est Cr Clr Drug Dosing Est GFR ( Amer) Est GFR (Non-Af Amer) BUN/Creatinine Ratio Glucose Calcium Phosphorus 3.1 Magnesium Total Bilirubin AST ALT Alkaline Phosphatase CK-MB (CK-2) 3.6 Troponin I 1.350 H* 1.500 H* NT-Pro-B Natriuret Pep 2469 H Total Protein Albumin Globulin Albumin/Globulin Ratio Urine Color Yellow Urine Appearance Clear Urine pH 7.5 Ur Specific [place] 1.012 Urine Protein Negative Urine Glucose (UA) Negative Urine Ketones Negative Urine Blood 1+ H Urine Nitrite Negative Urine Bilirubin Negative Urine Urobilinogen Negative Ur Leukocyte Esterase Trace H Urine WBC (Auto) 1-5 Urine RBC (Auto) 0-4 U Hyaline Cast (Auto) 0 U Epithel Cells (Auto) 5-10 H Urine Bacteria (Auto) Negative 05/16/19 05/17/19 05/17/19 20:33 04:28 04:28 WBC 8.73 RBC 4.23 Hgb 12.6 Hct 38.3 MCV 90.5 MCH 29.8 MCHC 32.9 RDW Std Deviation 45.6 RDW Coeff of Anatoliy 13.8 Plt Count 190 MPV 10.6 H Immature Gran % (Auto) 0.1 Neut % (Auto) 68.6 Lymph % (Auto) 18.8 [place] % (Auto) 9.7 Eos % (Auto) 2.2 Baso % (Auto) 0.6 Immature Gran # (Auto) 0.01 Neut # (Auto) 5.99 Lymph # (Auto) 1.64 [place] # (Auto) 0.85 H Eos # (Auto) 0.19 Baso # (Auto) 0.05 Sodium 142 Potassium 3.2 L Chloride 111 H Carbon Dioxide 26 Anion Gap 5.0 BUN 15 Creatinine 0.99 Est Cr Clr Drug Dosing 44.8 Est GFR ( Amer) 62.4 Est GFR (Non-Af Amer) 53.8 BUN/Creatinine Ratio 15.5 Glucose 106 H Calcium 8.4 L Phosphorus 3.5 Magnesium 2.1 Total Bilirubin 0.6 AST 13 L ALT 14 Alkaline Phosphatase 59 CK-MB (CK-2) Troponin I 1.550 H* 1.290 H* NT-Pro-B Natriuret Pep Total Protein 5.8 L Albumin 3.1 L Globulin 2.7 Albumin/Globulin Ratio 1.1 Urine Color Urine Appearance Urine pH Ur Specific [place] Urine Protein Urine Glucose (UA) Urine Ketones Urine Blood Urine Nitrite Urine Bilirubin Urine Urobilinogen Ur Leukocyte Esterase Urine WBC (Auto) Urine RBC (Auto) U Hyaline Cast (Auto) U Epithel Cells (Auto) Urine Bacteria (Auto) Medications Administered Current Medications Acetaminophen (Tylenol) 500 mg PO Q4H PRN PRN Reason: Pain Stop: 06/15/19 08:31 Last Admin: 05/16/19 10:00 Dose: 500 mg Documented by: Amlodipine Besylate (Norvasc) 10 mg PO QAM [facility] Stop: 06/16/19 08:59 Last Admin: 05/17/19 09:06 Dose: 10 mg Documented by: Brimonidine Tartrate (Alphagan-P 0.15%) 1 drops OP BID [facility] Stop: 06/15/19 20:59 Last Admin: 05/17/19 09:03 Dose: 1 drops Documented by: Dorzolamide/Timolol (Cosopt) 1 drops OP BID [facility] Stop: 06/15/19 20:59 Last Admin: 05/17/19 09:04 Dose: 1 drops Documented by: Ioversol (Optiray 320 100ml) 95 ml IV ONCE PRN PRN Reason: Interaction Checking Stop: 05/20/19 12:46 Last Admin: 05/16/19 12:52 Dose: 95 ml Documented by: Labetalol HCl (Normodyne) 10 mg IV Q4H PRN PRN Reason: Blood Pressure - High Stop: 06/15/19 13:31 Last Admin: 05/17/19 04:49 Dose: 10 mg Documented by: Labetalol HCl (Normodyne) 100 mg PO BID [facility] Stop: 06/16/19 06:03 Last Admin: 05/17/19 09:06 Dose: Not Given Documented by: Latanoprost (Xalatan Oph) 1 drops OP QPM ISIDRO Stop: 06/15/19 20:59 Last Admin: 05/16/19 21:40 Dose: 1 drops Documented by: Miscellaneous (Icu Electrolyte Replacement Protocol) 1 ea N/A UD PRN PRN Reason: for e-lyte repletion Stop: 05/24/19 06:05 PG Care Time/CCT Total # of Minutes Spent Total Time Spent with Patient: Total time spent is greater than 50% in coordination of care (as documented) at patient's floor/unit and/or counseling patient: Resident Activity Tracking Resident Involvement: Resident Care Provided Care Provided: Adult [facility] Medicine
--- NOTE | 2019-05-17 10:25 | Critical Care Progress Note ---
Date of Service May 17, 2019 Assessment & Plan (1) Admitted to intensive care unit: Neuro: -[facility] ICU: NEGATIVE -No concerns at present, mentating well, no vision, hearing, sensory, motor abnormalities -Monitor for si/sx of mental status changes Cardiac: Hypertensive urgency: Per report systolic blood pressures were in the 270s and diastolics were greater than 120 at the outside hospital. She was supposedly treated with labetalol and failed to respond. In the [facility] ICU she was given labetalol 10 mg IV and hydralazine and her pressures responded well. After further imaging and discussion with urology there is concern that the mass on her kidney is likely responsible for hypertension with her is acting as a pheochromocytoma and secreting hormones causing her to become hypertensive versus impinging on the adrenal vasculature resulting in hypertension is difficult to discern. Regardless will need blood pressure control with an alpha-arden, hopefully removal of the mass will result in amelioration of her hypertension. In the interim we will control aggressively with labetalol, hydralazine, amlodipine -Continue amlodipine 10 mg p.o. daily Continue labetalol 100 mg p.o. twice daily Hydralazine 10 mg every 6 hours as needed Monitor on telemetry Echo demonstrated mild MR, mild LVH, EF 55-60%, LV function normal, no wall motion abnormalities Elevated troponin: Patient with elevated troponin at the outside hospital without significant EKG changes. Repeat troponin obtained in our hospital still elevated at 1.350 suspect likely secondary to demand ischemia -Troponins peaked and are now downtrending Elevated BNP: Likely secondary to patient demographics elderly female. No overt signs or symptoms of heart failure. -Monitor for now Respiratory: -No concerns GI: -No concerns RENAL/LYTES: -No significant electrolyte derangement. -Replace lytes as needed. Right Renal mass: Further imaging of the renal mass demonstrated that it is in the proximity of the right adrenal gland. There is a question whether is pressing up on the adrenal gland resulting in the release of catecholamines versus impinging upon the vasculature resulting in release of catecholamines regardless the current working theory is that her hypertension is secondary to this renal mass. Consulted urology they require further imaging to determine the exact anatomical location and whether or not it can be operated on here or she will require a higher level of care. MRI abdomen with renal protocol will be obtained later today. -Ultimately will need a right-sided nephrectomy, further imaging will determine whether or not it will be performed here at an outside facility : -As above ENDO: -No concerns at present HEME: -Stable H&H. ID: - No concerns for infection at this point. -Monitor fever curve. LINES/IV ACCESS: -PIVs intact. DVT PROPHYLAXIS: -SCD's -Transition to chemical prophylaxis with Lovenox tomorrow. Dispo: Transfer to telemetry Thank you for allowing us to be part of this patient's care. Please refer to Dr. Oh's documentation for any further recommendations. Supervising Physician Co-Signing Physician Notes Dr. Barrera was the resident-physician during care of patient. I separately evaluated patient for tucker portions of the history and the exam. I was present during the critical portion of medical decision making, and I discussed the case with the resident. I generally agree with the findings and plan except for any additions/exceptions noted. 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 This may explain her sudden hypertension as the mass may be involving the adrenal gland. Given this concern, we have added labetalol 100 mg twice daily as it does have some alpha blocking pharmacology. I have also increased her amlodipine to 10 mg daily. Her blood pressure seems to be better controlled today and I think she is stable to be transferred to the floor with follow-up by urology. She does have risk factors for thrombogenesis and spontaneous clot development given the characteristics of renal cell carcinoma. However, given her recent hematuria we will withhold chemical prophylaxis and continue SCD for now. She can likely start chemical prophylaxis tomorrow with Lovenox. Her troponins have been downtrending. Her echo is relatively unremarkable. Appreciate cardiology's input. Transfer to floor with telemetry. Subjective 78-year-old female sitting up in bed this morning in no acute distress. Patient reports doing well overnight, tolerating her diet, voiding, stooling, sleeping. Patient specifically denies motor symptoms, sensory symptoms, vision changes, hearing changes, headache, chest pressure, chest pain, other concerning signs or symptoms. Patient reports with the exception of elevated blood pressure she is otherwise asymptomatic. We reviewed with the patient her imaging findings, and our thoughts regarding the underlying cause of her hypertension. Patient verbalized understanding No acute concerns are present, all questions answered. Physical Exam Physical Exam: General: No acute distress HEENT: Normocephalic atraumatic Neck: No significant lymphadenopathy, trachea midline, normal to visual inspection Cardiac: Regular rate and rhythm, normal S1, normal S2, I did not appreciated any significant murmurs rubs or gallops, I did not appreciate any significant pedal edema, No calf tenderness, capillary refill is less than 3 seconds Respiratory: Clear to auscultation bilaterally with symmetrical chest rise, I did not appreciate any significant wheezes, rales, rhonchi, no increased work of breathing GI: Tender to palpation right upper quadrant/flank normal bowel sounds, soft, nontender MSK: No sensory or motor changes, moves all extremities without issue, extremities are warm and well-perfused Skin: [place], clean, dry, intact. Neuro: Alert and oriented x4 Psych: Calm, cooperative, logical thought process Results & Data Vital Signs (Past 12 Hours) Vital Signs Temp Pulse Resp BP Pulse Ox 05/17/19 09:00 73 15 143/69 H 95 05/17/19 08:30 74 16 139/66 95 05/17/19 08:00 36.9 C 73 12 158/73 H 93 05/17/19 07:30 71 16 157/90 H 96 05/17/19 07:01 68 15 96 05/17/19 07:00 71 19 189/86 H 94 05/17/19 06:30 68 14 212/86 H 97 05/17/19 06:00 68 16 194/84 H 96 05/17/19 05:30 68 15 186/76 H 95 05/17/19 05:00 71 14 184/82 H 95 05/17/19 04:48 78 17 202/82 H 96 05/17/19 04:30 78 16 202/88 H 94 05/17/19 04:00 75 15 181/89 H 94 05/17/19 03:30 71 13 168/77 H 95 05/17/19 03:00 78 17 182/86 H 95 05/17/19 02:30 76 15 160/81 H 94 05/17/19 02:00 74 16 195/86 H 95 05/17/19 01:30 77 14 186/84 H 95 05/17/19 01:00 72 17 176/87 H 93 05/17/19 00:30 72 17 175/71 H 95 05/17/19 00:20 72 13 158/80 H 94 05/17/19 00:00 36.5 C 75 15 193/87 H 96 05/16/19 23:30 76 18 167/71 H 95 05/16/19 23:00 72 15 154/65 H 93 05/16/19 22:30 74 16 151/62 H 92 Laboratory Results 05/17/19 05/17/19 05/16/19 Range/Units 04:28 04:28 20:33 WBC 8.73 (4.8-10.8) K/uL RBC 4.23 (4.2-5.4) M/uL Hgb 12.6 (12.0-16.0) g/dL Hct 38.3 (37-47) % MCV 90.5 (80-100) fL MCH 29.8 (25-34) pg MCHC 32.9 (32-36) g/dL RDW Std Deviation 45.6 (36.4-46.3) fL RDW Coeff of Anatoliy 13.8 (11.5-14.5) % Plt Count 190 (130-400) K/uL MPV 10.6 H (7.4-10.4) fL Immature Gran % (Auto) 0.1 % Neut % (Auto) 68.6 % Lymph % (Auto) 18.8 % [place] % (Auto) 9.7 % Eos % (Auto) 2.2 % Baso % (Auto) 0.6 % Immature Gran # (Auto) 0.01 (0.00-0.02) K/uL Neut # (Auto) 5.99 (1.4-6.5) K/uL Lymph # (Auto) 1.64 (1.2-3.4) K/uL [place] # (Auto) 0.85 H (0.11-0.59) K/uL Eos # (Auto) 0.19 (0-0.5) K/uL Baso # (Auto) 0.05 (0-0.2) K/uL Sodium 142 (136-145) mmol/L Potassium 3.2 L (3.5-5.1) mmol/L Chloride 111 H (98-107) mmol/L Carbon Dioxide 26 (21-32) mmol/L Anion Gap 5.0 (3-11) BUN 15 (7-18) mg/dl Creatinine 0.99 (0.6-1.2) mg/dl Est Cr Clr Drug Dosing 44.8 ml/min Est GFR ( Amer) 62.4 Est GFR (Non-Af Amer) 53.8 BUN/Creatinine Ratio 15.5 (10-20) Glucose 106 H (70-99) mg/dl Calcium 8.4 L (8.5-10.1) mg/dl Phosphorus 3.5 (2.5-4.9) mg/dl Magnesium 2.1 (1.8-2.4) mg/dl Total Bilirubin 0.6 (0.2-1) mg/dl AST 13 L (15-37) U/L ALT 14 (12-78) U/L Alkaline Phosphatase 59 (45-117) U/L Troponin I 1.290 H* 1.550 H* (0-0.045) ng/ml Total Protein 5.8 L (6.4-8.2) gm/dl Albumin 3.1 L (3.4-5.0) gm/dl Globulin 2.7 (2.5-4.0) gm/dl Albumin/Globulin Ratio 1.1 (0.9-2) Urine Color Urine Appearance (Clear) Urine pH (4.5-7.5) Ur Specific [place] (1.000-1.030) Urine Protein (Negative) Urine Glucose (UA) (Negative) Urine Ketones (Negative) Urine Blood (Negative) Urine Nitrite (Negative) Urine Bilirubin (Negative) Urine Urobilinogen (Negative) Ur Leukocyte Esterase (Negative) Urine WBC (Auto) (0-5) /hpf Urine RBC (Auto) (0-4) /hpf U Hyaline Cast (Auto) (0-5) /lpf U Epithel Cells (Auto) (0-5) /lpf Urine Bacteria (Auto) (Negative) 05/16/19 Range/Units 08:00 WBC (4.8-10.8) K/uL RBC (4.2-5.4) M/uL Hgb (12.0-16.0) g/dL Hct (37-47) % MCV (80-100) fL MCH (25-34) pg MCHC (32-36) g/dL RDW Std Deviation (36.4-46.3) fL RDW Coeff of Anatoliy (11.5-14.5) % Plt Count (130-400) K/uL MPV (7.4-10.4) fL Immature Gran % (Auto) % Neut % (Auto) % Lymph % (Auto) % [place] % (Auto) % Eos % (Auto) % Baso % (Auto) % Immature Gran # (Auto) (0.00-0.02) K/uL Neut # (Auto) (1.4-6.5) K/uL Lymph # (Auto) (1.2-3.4) K/uL [place] # (Auto) (0.11-0.59) K/uL Eos # (Auto) (0-0.5) K/uL Baso # (Auto) (0-0.2) K/uL Sodium (136-145) mmol/L Potassium (3.5-5.1) mmol/L Chloride (98-107) mmol/L Carbon Dioxide (21-32) mmol/L Anion Gap (3-11) BUN (7-18) mg/dl Creatinine (0.6-1.2) mg/dl Est Cr Clr Drug Dosing ml/min Est GFR ( Amer) Est GFR (Non-Af Amer) BUN/Creatinine Ratio (10-20) Glucose (70-99) mg/dl Calcium (8.5-10.1) mg/dl Phosphorus (2.5-4.9) mg/dl Magnesium (1.8-2.4) mg/dl Total Bilirubin (0.2-1) mg/dl AST (15-37) U/L ALT (12-78) U/L Alkaline Phosphatase (45-117) U/L Troponin I (0-0.045) ng/ml Total Protein (6.4-8.2) gm/dl Albumin (3.4-5.0) gm/dl Globulin (2.5-4.0) gm/dl Albumin/Globulin Ratio (0.9-2) Urine Color Yellow Urine Appearance Clear (Clear) Urine pH 7.5 (4.5-7.5) Ur Specific [place] 1.012 (1.000-1.030) Urine Protein Negative (Negative) Urine Glucose (UA) Negative (Negative) Urine Ketones Negative (Negative) Urine Blood 1+ H (Negative) Urine Nitrite Negative (Negative) Urine Bilirubin Negative (Negative) Urine Urobilinogen Negative (Negative) Ur Leukocyte Esterase Trace H (Negative) Urine WBC (Auto) 1-5 (0-5) /hpf Urine RBC (Auto) 0-4 (0-4) /hpf U Hyaline Cast (Auto) 0 (0-5) /lpf U Epithel Cells (Auto) 5-10 H (0-5) /lpf Urine Bacteria (Auto) Negative (Negative) Medications Administered Current Inpatient Medications Acetaminophen (Tylenol) 500 mg PO Q4H PRN PRN Reason: Pain Stop: 06/15/19 08:31 Last Admin: 05/16/19 10:00 Dose: 500 mg Documented by: Amlodipine Besylate (Norvasc) 10 mg PO QAM [facility] Stop: 06/16/19 08:59 Last Admin: 05/17/19 09:06 Dose: 10 mg Documented by: Brimonidine Tartrate (Alphagan-P 0.15%) 1 drops OP BID [facility] Stop: 06/15/19 20:59 Last Admin: 05/17/19 09:03 Dose: 1 drops Documented by: Dorzolamide/Timolol (Cosopt) 1 drops OP BID [facility] [place] Stop: 06/15/19 20:59 Last Admin: 05/17/19 09:04 Dose: 1 drops Documented by: Hydralazine HCl (Hydralazine Hcl) 10 mg IV Q6H PRN PRN Reason: SBP >160, hold for HR >110 Stop: 06/16/19 14:12 Last Admin: 05/17/19 14:37 Dose: 10 mg Documented by: Ioversol (Optiray 320 100ml) 95 ml IV ONCE PRN PRN Reason: Interaction Checking Stop: 05/20/19 12:46 Last Admin: 05/16/19 12:52 Dose: 95 ml Documented by: Labetalol HCl (Normodyne) 100 mg PO BID [facility] Stop: 06/16/19 06:03 Last Admin: 05/17/19 09:06 Dose: Not Given Documented by: Latanoprost (Xalatan Oph) 1 drops OP QPM [facility] [place] Stop: 06/15/19 20:59 Last Admin: 05/16/19 21:40 Dose: 1 drops Documented by: Miscellaneous (Icu Electrolyte Replacement Protocol) 1 ea N/A UD PRN PRN Reason: for e-lyte repletion Stop: 05/24/19 06:05 Resident Activity Tracking Resident Involvement: Resident Care Provided Care Provided: Adult Hospital Medicine (ICU)
--- NOTE | 2019-05-17 10:36 | Billing Data ---
Coding Level of Care Code 71954 Subseq Hosp Care Lvl 3
[2019-05-17] MEDS ORDERED: Nursing to Pharmacy Communication ONE (14:15)
--- NOTE | 2019-05-17 14:19 | Hospitalist Progress Note ---
Date of Service May 17, 2019 Assessment & Plan (1) Hypertensive urgency: blood pressure fluctuating but overall much improved continue Norvasc 10mg daily and Labetalol 100mg BID, can titrate up if needed use Labetalol 10mg IV PRN (2) Right renal mass: 7.7 x 8.0 cm mass on right kidney, abutting the liver presented with hematuria and right flank pain discussed with patient that this would be considered cancer until proven otherwise will obtain MRI abdomen renal protocol today to determine if mass is close to IVC patient may need to be transferred to tertiary care for surgical resection, MRI will help determine plan (3) Elevated troponin: troponin was elevated at 1 echo with preserved EF, no wall motion abnormalities never had chest pain or pressure no ischemic changes on EKG elevated troponin is demand ischemia, due to markedly elevated blood pressure Subjective patient feeling well, no issues overnight BP continues to fluctuate, will spike over 200 systolic at times started on Labetalol 100mg BID this morning in addition to the Norvasc 10mg daily use Labetalol PRN discussed with Dr. Galo, he recommends getting MRI of the abdomen with renal protocol to look for venous involvement he feels that the mass needs to be operated on, the MRI will help determine if she should stay here or go to tertiary care discussed this with patient and her family, she agrees to do whatever is necessary Cr stable at 0.99, K low at 3.2, CBC is normal discussed with Dr. Oh as well Review of Systems Review of Systems: All systems reviewed & are unremarkable except as noted in HPI & below Physical Exam Constitutional: WD/WN, vitals as above Eyes: PERRL, conjunctivae normal, anicteric sclerae ENMT: external ear and nose normal, oropharynx normal Neck: trachea midline, no thyromegaly Respiratory: normal respiratory effort, lungs clear to auscultation Cardiovascular: RRR, no murmur, no edema Gastrointestinal (Abdomen): Inspection/Auscultation: abdomen normal to inspection and normal bowel sounds; abdomen not distended Percussion/Palpation: + abdomen tender (mild TTP in RUQ) and abdomen soft; no guarding, abdomen not rigid and no hepatosplenomegaly Musculoskeletal: no cyanosis or clubbing, extremities motor strength 5/5 Skin: no rashes, warm and dry Neurologic: patellar DTR's 2+ bilat, sensation intact and PERRL, EOMI, accommodation nl, no face palsy, no dysarthria Psychiatric: A+Ox3, euthymic affect Genitourinary: + CVA tenderness (mild on right) Lymphatic: no cervical or axillary lymphadenopathy Results & Data Vital Signs (Past 12 Hours) Vital Signs Temp Pulse Resp BP Pulse Ox 05/17/19 13:00 70 20 167/72 H 96 05/17/19 12:11 73 22 205/89 H 95 05/17/19 12:00 36.7 C 74 18 95 05/17/19 11:41 72 20 202/85 H 97 05/17/19 11:00 67 18 181/77 H 95 05/17/19 10:00 71 23 166/77 H 95 05/17/19 09:00 73 15 143/69 H 95 05/17/19 08:30 74 16 139/66 95 05/17/19 08:00 36.9 C 73 12 158/73 H 93 05/17/19 07:30 71 16 157/90 H 96 05/17/19 07:01 68 15 96 05/17/19 07:00 71 19 189/86 H 94 05/17/19 06:30 68 14 212/86 H 97 05/17/19 06:00 68 16 194/84 H 96 05/17/19 05:30 68 15 186/76 H 95 05/17/19 05:00 71 14 184/82 H 95 05/17/19 04:48 78 17 202/82 H 96 05/17/19 04:30 78 16 202/88 H 94 05/17/19 04:00 75 15 181/89 H 94 05/17/19 03:30 71 13 168/77 H 95 05/17/19 03:00 78 17 182/86 H 95 05/17/19 02:30 76 15 160/81 H 94 Laboratory Results Laboratory Results - last 24 hr 05/16/19 05/16/19 05/17/19 08:00 20:33 04:28 WBC RBC Hgb Hct MCV MCH MCHC RDW Std Deviation RDW Coeff of Anatoliy Plt Count MPV Immature Gran % (Auto) Neut % (Auto) Lymph % (Auto) [place] % (Auto) Eos % (Auto) Baso % (Auto) Immature Gran # (Auto) Neut # (Auto) Lymph # (Auto) [place] # (Auto) Eos # (Auto) Baso # (Auto) Sodium 142 Potassium 3.2 L Chloride 111 H Carbon Dioxide 26 Anion Gap 5.0 BUN 15 Creatinine 0.99 Est Cr Clr Drug Dosing 44.8 Est GFR ( Amer) 62.4 Est GFR (Non-Af Amer) 53.8 BUN/Creatinine Ratio 15.5 Glucose 106 H Calcium 8.4 L Phosphorus 3.5 Magnesium 2.1 Total Bilirubin 0.6 AST 13 L ALT 14 Alkaline Phosphatase 59 Troponin I 1.550 H* 1.290 H* Total Protein 5.8 L Albumin 3.1 L Globulin 2.7 Albumin/Globulin Ratio 1.1 Urine Color Yellow Urine Appearance Clear Urine pH 7.5 Ur Specific [place] 1.012 Urine Protein Negative Urine Glucose (UA) Negative Urine Ketones Negative Urine Blood 1+ H Urine Nitrite Negative Urine Bilirubin Negative Urine Urobilinogen Negative Ur Leukocyte Esterase Trace H Urine WBC (Auto) 1-5 Urine RBC (Auto) 0-4 U Hyaline Cast (Auto) 0 U Epithel Cells (Auto) 5-10 H Urine Bacteria (Auto) Negative 05/17/19 04:28 WBC 8.73 RBC 4.23 Hgb 12.6 Hct 38.3 MCV 90.5 MCH 29.8 MCHC 32.9 RDW Std Deviation 45.6 RDW Coeff of Anatoliy 13.8 Plt Count 190 MPV 10.6 H Immature Gran % (Auto) 0.1 Neut % (Auto) 68.6 Lymph % (Auto) 18.8 [place] % (Auto) 9.7 Eos % (Auto) 2.2 Baso % (Auto) 0.6 Immature Gran # (Auto) 0.01 Neut # (Auto) 5.99 Lymph # (Auto) 1.64 [place] # (Auto) 0.85 H Eos # (Auto) 0.19 Baso # (Auto) 0.05 Sodium Potassium Chloride Carbon Dioxide Anion Gap BUN Creatinine Est Cr Clr Drug Dosing Est GFR ( Amer) Est GFR (Non-Af Amer) BUN/Creatinine Ratio Glucose Calcium Phosphorus Magnesium Total Bilirubin AST ALT Alkaline Phosphatase Troponin I Total Protein Albumin Globulin Albumin/Globulin Ratio Urine Color Urine Appearance Urine pH Ur Specific [place] Urine Protein Urine Glucose (UA) Urine Ketones Urine Blood Urine Nitrite Urine Bilirubin Urine Urobilinogen Ur Leukocyte Esterase Urine WBC (Auto) Urine RBC (Auto) U Hyaline Cast (Auto) U Epithel Cells (Auto) Urine Bacteria (Auto) Medications Administered Current Inpatient Medications Acetaminophen (Tylenol) 500 mg PO Q4H PRN PRN Reason: Pain Stop: 06/15/19 08:31 Last Admin: 05/16/19 10:00 Dose: 500 mg Documented by: Amlodipine Besylate (Norvasc) 10 mg PO QAM [facility] Stop: 06/16/19 08:59 Last Admin: 05/17/19 09:06 Dose: 10 mg Documented by: Brimonidine Tartrate (Alphagan-P 0.15%) 1 drops OP BID [facility] Stop: 06/15/19 20:59 Last Admin: 05/17/19 09:03 Dose: 1 drops Documented by: Dorzolamide/Timolol (Cosopt) 1 drops OP BID [facility] Stop: 06/15/19 20:59 Last Admin: 05/17/19 09:04 Dose: 1 drops Documented by: Ioversol (Optiray 320 100ml) 95 ml IV ONCE PRN PRN Reason: Interaction Checking Stop: 05/20/19 12:46 Last Admin: 05/16/19 12:52 Dose: 95 ml Documented by: Labetalol HCl (Normodyne) 10 mg IV Q4H PRN PRN Reason: Blood Pressure - High Stop: 06/15/19 13:31 Last Admin: 05/17/19 12:14 Dose: 10 mg Documented by: Labetalol HCl (Normodyne) 100 mg PO BID [facility] Stop: 06/16/19 06:03 Last Admin: 05/17/19 09:06 Dose: Not Given Documented by: Latanoprost (Xalatan Oph) 1 drops OP QPM [facility] Stop: 06/15/19 20:59 Last Admin: 05/16/19 21:40 Dose: 1 drops Documented by: Miscellaneous (Icu Electrolyte Replacement Protocol) 1 ea N/A UD PRN PRN Reason: for e-lyte repletion Stop: 05/24/19 06:05 PG Care Time/CCT Total # of Minutes Spent Total Time Spent with Patient: Total time spent is greater than 50% in coordination of care (as documented) at patient's floor/unit and/or counseling patient:
[2019-05-17] MEDS: HydrALAZINE HCL 20 MG/ML VIAL IV PRN (14:37)
[2019-05-17] MEDS ORDERED: GADOBUTROL 65ML VIAL IV PRN (18:31)
--- NOTE | 2019-05-17 18:42 | Magnetic Resonance Report ---
MR abdomen wo/w con CLINICAL HISTORY: Renal mass. COMPARISON STUDY: CT dated 05/16/2019. TECHNIQUE: MRI of the abdomen is performed transverse T1 and T2-weighted sequences in the axial and c oronal planes. Contrast enhanced sequences were acquired following the IV administration of 8 cc. FINDINGS: Lower chest: No pleural effusion is identified. The heart is normal in size. Liver: The liver is normal in size, contour, and signal intensity. No intrahepatic biliary ductal dil atation is seen. The hepatic veins and portal veins are patent. Gallbladder: Gallstone is present Spleen: Normal in size and signal intensity. Pancreas: Unremarkable. Adrenal glands: Unremarkable. Kidneys: Heterogeneous partially enhancing right renal mass measuring 7.3 x 7.4 cm. This is in contac t with but shows no definitive invasion of the liver. There is mild perinephric infiltrative change and collateral vasculature as well as several small reg ional nodes. There is suggestion of involvement of the right renal vein with short segment extension to the inferior vena cava. Left kidney demonstrates several small cysts. No evidence for left or right renal hydronephrosis. Nonobstructive bowel pattern. No significant adenopathy. Bowel: Visualized portions of the small bowel and colon show no evidence of obstruction. Peritoneum: There is no abdominal ascites. Lymphadenopathy: None. Skeletal structures: Visualized skeletal structures times are normal marrow signal intensity. IMPRESSION: 1. 7.3 x 7.4 cm heterogeneously enhancing right renal mass. 2. This demonstrates heterogeneous enhancement, partial perinephric fat infiltrative change, as well as several venous collaterals surrounding the perinephric region. 3. Probable extension to the right renal vein as well as a short segment of the inferior vena cava. 4. Several small perinephric lymph nodes. 5. Gallstone. 6. Study is otherwise unremarkable. The above report was generated using voice recognition software. It may contain grammatical, syntax or spelling errors. Electronically signed by: Edwin Rice M.D. 05/17/2019 6:41 PM
[2019-05-17] MEDS: LATANOPROST 0.005% OP SOLN 2.5 ML BTL OP SCH (22:33)
[2019-05-17] MEDS: ACETAMINOPHEN 500 MG TAB PO PRN (22:33)
[2019-05-18 05:08] LABS: BUN Creatinine Ratio 17.1 (10-20); Calcium 8.7 mg/dl (8.5-10.1); Creatinine Clr Calc Pharmacy 50.4 ml/min; Est GFR (African American) 71.9; Est GFR (Non-African American) 62.1; Magnesium 2.2 mg/dl (1.8-2.4); Phosphorus 3.9 mg/dl (2.5-4.9); Potassium 3.5 mmol/L (3.5-5.1)
[2019-05-18] MEDS ORDERED: POTASSIUM CHLORIDE 20 MEQ TABCR PO STA (05:20)
[2019-05-18] MEDS: HydrALAZINE HCL 20 MG/ML VIAL IV PRN (05:36)
--- NOTE | 2019-05-18 08:03 | Urology Progress Note ---
Date of Service May 18, 2019 Assessment & Plan (1) Right renal mass: 78yo F admitted with cardiac issues, large right renal mass. MR hahn completed yesterday for closer evaluation of IVC involvement. Impression is as follows: 1. 7.3 x 7.4 cm heterogeneously enhancing right renal mass. 2. This demonstrates heterogeneous enhancement, partial perinephric fat infiltrative change, as well as several venous collaterals surrounding the perinephric region. 3. Probable extension to the right renal vein as well as a short segment of the inferior vena cava. 4. Several small perinephric lymph nodes. Dr. Galo discussed plan of care with Dr. Verde this AM. We recommend transfer to tertiary care center that may offer vascular surgery given IVC involvement. Pt is understanding and agreeable, prefers [facility] if possible with insurance. All questions answered. Thank you for allowing us to participate in the acute care of Mrs. Max. Please reconsult us with additional questions, concerns or changes in patient status. Subjective Pt doing well this AM, states "this is the best I've felt in 4 days". Good appetite Voiding spontaneously, urine is clear per patient report. Labs reviewed- Alk Phos, WBC, Cr WNL. Appreciate hospitalist and cardiology recommendations. Review of Systems Review of Systems: All systems reviewed & are unremarkable except as noted in HPI & below Physical Exam Physical Exam: A&Ox3 RRR abd soft Results & Data Vital Signs (Past 12 Hours) Vital Signs Temp Pulse Resp BP Pulse Ox 05/18/19 06:00 70 15 154/75 H 97 05/18/19 05:00 68 15 184/82 H 98 05/18/19 04:00 36.7 C 72 15 159/72 H 95 05/18/19 03:00 65 20 144/64 H 93 05/18/19 02:00 67 16 153/62 H 95 05/18/19 01:00 67 15 150/68 H 94 05/18/19 00:00 36.7 C 67 16 144/63 H 95 05/17/19 23:00 69 20 160/73 H 93 05/17/19 22:00 78 22 161/74 H 96 05/17/19 21:00 71 16 134/70 95 PG Care Time/CCT Total # of Minutes Spent Total Time Spent with Patient: Total time spent is greater than 50% in coor dination of care (as documented) at patient's floor/unit and/or counseling patient:
[2019-05-18] MEDS: DORZOLAMIDE/TIMOLOL 22.3/6.8MG/ML 10 ML BTL OP SCH (08:08)
[2019-05-18] MEDS: AMLODIPINE BESYLATE 5 MG TAB PO SCH (08:08)
[2019-05-18] MEDS: BRIMONIDINE TARTRATE-P 0.15% 5 ML BTL OP SCH (08:08)
[2019-05-18] MEDS: LABETALOL HCL 100 MG TAB PO SCH (08:09)
--- NOTE | 2019-05-18 09:30 | Critical Care Progress Note ---
Date of Service May 18, 2019 Assessment & Plan (1) Admitted to intensive care unit: Neuro: -[facility] ICU: NEGATIVE -No concerns at present, mentating well, no vision, hearing, sensory, motor abnormalities -Monitor for si/sx of mental status changes Cardiac: Hypertensive urgency: Per report systolic blood pressures were in the 270s and diastolics were greater than 120 at the outside hospital. She was supposedly treated with labetalol and failed to respond. In the [facility] ICU she was given labetalol 10 mg IV and hydralazine and her pressures responded well. After further imaging and discussion with urology there is concern that the mass on her kidney is likely responsible for hypertension with her is acting as a pheochromocytoma and secreting hormones causing her to become hypertensive versus impinging on the adrenal vasculature resulting in hypertension is difficult to discern. Regardless will need blood pressure control with an alpha-arden, hopefully removal of the mass will result in amelioration of her hypertension. In the interim we will control aggressively with labetalol, hydralazine, amlodipine -Continue amlodipine 10 mg p.o. daily Increased labetalol 150 mg p.o. twice daily Hydralazine 10 mg every 6 hours as needed Monitor on telemetry Echo demonstrated mild MR, mild LVH, EF 55-60%, LV function normal, no wall motion abnormalities Elevated troponin: Patient with elevated troponin at the outside hospital without significant EKG changes. Repeat troponin obtained in our hospital still elevated at 1.350 suspect likely secondary to demand ischemia -Troponins peaked and are now downtrending Elevated BNP: Likely secondary to patient demographics elderly female. No overt signs or symptoms of heart failure. -Monitor for now Respiratory: -No concerns GI: -No concerns RENAL/LYTES: -No significant electrolyte derangement. -Replace lytes as needed. Right Renal mass: Further imaging of the renal mass demonstrated that it is in the proximity of the right adrenal gland. There is a question whether is pressing up on the adrenal gland resulting in the release of catecholamines versus impinging upon the vasculature resulting in release of catecholamines regardless the current working theory is that her hypertension is secondary to this renal mass. Consulted urology they require further imaging to determine the exact anatomical location and whether or not it can be operated on here or she will require a higher level of care. 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 Patient will need to be operated on at a tertiary care facility due to invasion into the vena cava. -Primary team coordinating care. She is to follow-up at [place] tomorrow : -As above ENDO: -No concerns at present HEME: -Stable H&H. ID: -No concerns for infection at this point. -Monitor fever curve. LINES/IV ACCESS: -PIVs intact. DVT PROPHYLAXIS: -SCD's Dispo: Stable for downgrade Thank you for allowing us to be part of this patient's care. Please refer to Dr. Oh's documentation for any further recommendations. (2) Elevated troponin: (3) Hypertensive urgency: (4) Right renal mass: Supervising Physician Co-Signing Physician Notes Dr. Barrera was the resident-physician during care of patient. I separately evaluated patient for tucker portions of the history and the exam. I was present during the critical portion of medical decision making, and I discussed the case with the resident. I generally agree with the findings and plan except for any additions/exceptions noted. Patient has improved from a hypertensive urgency standpoint. She has no chest pain. She has a renal mass that likely represents renal cell carcinoma and needs follow-up with [place] [facility]. Patient can be discharged home Subjective Patient sitting upright in bed this morning in no acute distress. Reports no acute events overnight. She is tolerating her diet, voiding, stooling, sleeping. Patient reports she is pain-free and has no other medical complaints. All questions answered no acute concerns Results & Data Vital Signs (Past 12 Hours) Vital Signs Temp Pulse Pulse Resp BP BP Pulse Ox 05/18/19 09:02 77 05/18/19 09:00 81 15 99 05/18/19 08:00 86 14 98 05/18/19 07:53 78 15 173/77 H 98 05/18/19 07:51 37 C 77 21 168/77 H 98 05/18/19 07:00 83 20 97 05/18/19 06:00 70 15 154/75 H 97 05/18/19 05:00 68 15 184/82 H 98 05/18/19 04:00 36.7 C 72 15 159/72 H 95 05/18/19 03:00 65 20 144/64 H 93 05/18/19 02:00 67 16 153/62 H 95 05/18/19 01:00 67 15 150/68 H 94 05/18/19 00:00 36.7 C 67 16 144/63 H 95 05/17/19 23:00 69 20 160/73 H 93 05/17/19 22:00 78 22 161/74 H 96 Laboratory Results 05/18/19 Range/Units 04:19 Sodium 142 (136-145) mmol/L Potassium 3.5 (3.5-5.1) mmol/L Chloride 112 H (98-107) mmol/L Carbon Dioxide 25 (21-32) mmol/L Anion Gap 5.0 (3-11) BUN 15 (7-18) mg/dl Creatinine 0.88 (0.6-1.2) mg/dl Est Cr Clr Drug Dosing 50.4 ml/min Est GFR ( Amer) 71.9 Est GFR (Non-Af Amer) 62.1 BUN/Creatinine Ratio 17.1 (10-20) Glucose 97 (70-99) mg/dl Calcium 8.7 (8.5-10.1) mg/dl Phosphorus 3.9 (2.5-4.9) mg/dl Magnesium 2.2 (1.8-2.4) mg/dl Medications Administered Current Inpatient Medications Acetaminophen (Tylenol) 500 mg PO Q4H PRN PRN Reason: Pain Stop: 06/15/19 08:31 Last Admin: 05/17/19 22:33 Dose: 500 mg Documented by: Amlodipine Besylate (Norvasc) 10 mg PO QAM [facility] Stop: 06/16/19 08:59 Last Admin: 05/18/19 08:08 Dose: 10 mg Documented by: Brimonidine Tartrate (Alphagan-P 0.15%) 1 drops OP BID [facility] Stop: 06/15/19 20:59 Last Admin: 05/18/19 08:08 Dose: 1 drops Documented by: Dorzolamide/Timolol (Cosopt) 1 drops OP BID [facility] Stop: 06/15/19 20:59 Last Admin: 05/18/19 08:08 Dose: 1 drops Documented by: Gadobutrol (Gadavist 65ml) 7 ml IV ONCE PRN PRN Reason: Interaction Checking Stop: 05/21/19 18:30 Last Admin: 05/17/19 18:31 Dose: 7 ml Documented by: Hydralazine HCl (Hydralazine Hcl) 10 mg IV Q6H PRN PRN Reason: SBP >160, hold for HR >110 Stop: 06/16/19 14:12 Last Admin: 05/18/19 05:36 Dose: 10 mg Documented by: Ioversol (Optiray 320 100ml) 95 ml IV ONCE PRN PRN Reason: Interaction Checking Stop: 05/20/19 12:46 Last Admin: 05/16/19 12:52 Dose: 95 ml Documented by: Labetalol HCl (Normodyne) 150 mg PO BID [facility] Stop: 06/16/19 20:59 Last Admin: 05/18/19 08:09 Dose: 150 mg Documented by: Latanoprost (Xalatan Oph) 1 drops OP QPM [facility] Stop: 06/15/19 20:59 Last Admin: 05/17/19 22:33 Dose: 1 drops Documented by: Miscellaneous (Icu Electrolyte Replacement Protocol) 1 ea N/A UD PRN PRN Reason: for e-lyte repletion Stop: 05/24/19 06:05 Resident Activity Tracking Resident Involvement: Resident Care Provided Care Provided: Adult Hospital Medicine
--- NOTE | 2019-05-18 10:35 | Discharge Summary ---
Date of Service May 18, 2019 Admission HPI Per Admitting Provider 78 yo female with history of glaucoma but otherwise healthy, presented to the ED at [facility] due to right flank pain and blood in her urine. The symptoms started two days prior to her arrival. She said that prior to that she had been doing well, no issues. Her blood pressure will occasionally be high in the doctor's office but she did not have a history of essential HTN. In the ED at [place] her blood pressures were markedly elevated with SBP in the 250-270 range and DBP > 120. She was admitted and treated with Labetalol. She admitted to having a headache with the elevated blood pressure. No changes in vision, no chest pain, no dyspnea. She had a CT of her abdomen/pelvis due to the right flank pain and hematuria. This showed a 7.7 x 8.0 cm mass in the right kidney, abutting the liver, possible liver nodules at that location. Due to renal mass and no urological services, patient and family requested transfer to [facility]. Here in the ICU she is feeling well, denies headache, chest pain, dyspnea, cough, abdominal pain, NVD, peripheral edema, fever/chills/sweats. Her BP is improved to 150-170 systolic. We discussed the recent events and she confirmed that she only had the hematuria and right flank pain for two days, she had been feeling well up until that time. Medical history significant for glaucoma Surgical history significant for hysterectomy 30 years ago No history of smoking or daily alcohol intake Principal Diagnosis Right renal mass Discharge Exam Constitutional WD/WN, vitals as above Eyes PERRL, conjunctivae normal, anicteric sclerae ENMT external ear and nose normal, oropharynx normal Neck trachea midline, no thyromegaly Respiratory normal respiratory effort, lungs clear to auscultation Cardiovascular RRR, no murmur, no edema Gastrointestinal (Abdomen) Inspection/Auscultation: abdomen normal to inspection and normal bowel sounds; abdomen not distended Percussion/Palpation: + abdomen tender (mild TTP in RUQ) and abdomen soft; no guarding, abdomen not rigid and no hepatosplenomegaly Musculoskeletal no cyanosis or clubbing, extremities motor strength 5/5 Skin no rashes, warm and dry Neurologic patellar DTR's 2+ bilat, sensation intact and PERRL, EOMI, accommodation nl, no face palsy, no dysarthria Psychiatric A+Ox3, euthymic affect Genitourinary + CVA tenderness (mild on right) Lymphatic no cervical or axillary lymphadenopathy Discharge Data Allergies Allergy/AdvReac Type Severity Reaction Status Date / Time chicken derived Allergy Mild dry Verified 05/16/19 07:37 throat, SOB potato Allergy dry Verified 05/16/19 07:18 throat, SOB Consultations 05/16/19 07:18 Consult Case Management - Discharge Planning Routine 05/16/19 07:26 Consult Insurance Sales Producer Routine 05/16/19 08:16 Consult Urology Routine 05/16/19 12:30 Consult Cardiology Routine Ordered Studies 05/16/19 11:15 CT chest w con Routine 05/16/19 11:39 CT abdomen pelvis wo/w con Routine 05/17/19 10:53 MR abdomen wo/w con Urgent Hospital Course (1) Right renal mass: 7.7 x 8.0 cm mass on right kidney, abutting the liver presented with hematuria and right flank pain MRI abdomen on 05/17 Kidneys: Heterogeneous partially enhancing right renal mass measuring 7.3 x 7.4 cm. This is in contact with but shows no definitive invasion of the liver. There is mild perinephric infiltrative change and collateral vasculature as well as several small regional nodes. There is suggestion of involvement of the right renal vein with short segment extension to the inferior vena cava. Left kidney demonstrates several small cysts. No evidence for left or right renal hydronephrosis. Peritoneum: There is no abdominal ascites. Lymphadenopathy: None. Skeletal structures: Visualized skeletal structures times are normal marrow signal intensity. IMPRESSION: 1. 7.3 x 7.4 cm heterogeneously enhancing right renal mass. 2. This demonstrates heterogeneous enhancement, partial perinephric fat infiltrative change, as well as several venous collaterals surrounding the perinephric region. 3. Probable extension to the right renal vein as well as a short segment of the inferior vena cava. 4. Several small perinephric lymph nodes. CT of the chest shows no signs of metastatic disease in the lungs will d/c to home and follow up with Dr. Quinn in [facility] tomorrow (2) Hypertensive urgency: blood pressure fluctuating but overall much improved continue Norvasc 10mg daily and Labetalol 150mg BID, can titrate up if needed BP is ranging 140-170 systolic over the past 24 hours (3) Elevated troponin: troponin was elevated at 1 echo with preserved EF, no wall motion abnormalities never had chest pain or pressure no ischemic changes on EKG elevated troponin is demand ischemia, due to markedly elevated blood pressure of 270's systolic when she was first admitted cardiology signed off, no further testing needed Total Time Total Time Spent Total Time Spent (In Minutes): 45 minutes Total Time Includes: Examination of the Patient, Discharge Planning, Medication Reconciliation and Communication With Other Providers Discharge Plan Discharge Items Patient Disposition: Home - Self-Care Reason For Visit: HYPERTENSIVE URGENCY Discharge Diagnosis: Hypertensive urgency Right renal mass Condition on Discharge: Good Goals: follow up tomorrow with urology oncologist, Dr. Femi Quinn rest, stay well hydrated Activity: Per Instructions section Lifting: None Bathing: No limitations Exercise/Sports: Rest today Exercise Comment: no strenuous activity until operation Driving/Machine Use: no driving until cleared after surgery Weightbearing: Full weightbearing Non-emergency contact: Primary Care Provider and Urologist Call non-emergency contact if: you have any medication questions, your symptoms worsen and you have a fever Follow-up/Referrals: PCP,NO [Primary Care Provider] - Diet: Low Sodium (2gm) Addtl Attending Provider Instructions: Medications: - AMLODIPINE: 10mg every morning - LABETALOL: 150mg (1.5 tablets) in the morning and evening Hypertensive urgency blood pressure much better controlled on the amlodipine and labetalol, continue to take as prescribed please follow a low salt diet, less than 2gm a day Right renal mass Dr. Galo recommend referral to [place] to see urology oncology you have an appointment tomorrow with Dr. Quinn at [place] Dr Femi Quinn [facility] [place] [address] [facility] appointment is at 3:20pm, please arrive 10 minutes early you will take a copy of reports as well as a disc with images (MRI and CT scans) Pending Studies at Discharge: No Stand-Alone Forms: [employer] Pet Insurance Quotes, Smoking Cessation Medications and DC Order Prescriptions: New amlodipine [Norvasc] 5 mg Tablet 10 mg PO QAM 30 Days Qty: 60 RF: 3 labetalol 100 mg Tablet 150 mg PO BID 30 Days Qty: 90 RF: 3 Continued Systane (propylene glycol) 0.4-0.3 % Drops 1 drp OPHTHALMIC (EYE) QID RF: 0 dorzolamide-timolol 22.3-6.8 mg/mL drops 1 drp ophthalmic (eye) BID RF: 0 brimonidine 0.2 % drops 1 drp ophthalmic (eye) BID RF: 0 cholecalciferol (vitamin D3) 1,000 unit Tablet,Chewable 1,000 unit PO DAILY RF: 0 multivitamin Tablet 1 tab PO DAILY RF: 0 [place]-3 350 mg-235 mg- 90 mg-597 mg Capsule,Delayed Release(Dr/Ec) 1 cap PO DAILY RF: 0 latanoprost 0.005 % drops 1 drp ophthalmic (eye) QPM RF: 0 Discharge Orders: Discharge Order (Routine); Ordered 05/18/19 Ordered By: Darren Verde Admission Data Admit Date/Time: 05/16/19 06:57 Attending Provider: Darren Verde Admit Provider: Isaac Ruiz Primary Care Provider: PCP,NO Other Providers: Zak Oh ; Varghese Holden ; Varghese Vallejo
--- NOTE | 2019-05-18 21:14 | Medical Student Progress Note ---
Date of Service May 18, 2019 Assessment & Plan (1) Hypertensive urgency: Emelina's BP has ranged from 140-170 systolic over the past 24 hours. She should continue Labetalol 150 mg BID and Norvasc 10 mg daily. Followup with PCP following removal of renal mass to reevaluate for hypertension. (2) Right renal mass: In summary, a 7.7 x 8.0 cm right kidney mass was found with probable extension to the IVC. A CT of the chest shows no signs of metastasis. Emelina is scheduled to be seen with Dr. Quinn in [place] tomorrow, who will evaluate and remove the mass. Subjective Jenni feels well today. She has had no hematuria. No SOB, or palpitations. She does endorse some discomfort immediately following labetalol administration (headache, jaw pain, dizziness), but states that if she stays in bed following administration the symptoms subside in 30 minutes. Review of Systems Constitutional: no fever and no chills Respiratory: no cough, no dyspnea and no wheezing Cardiovascular: no chest pain, no palpitations and no edema Gastrointestinal: no abdominal pain (abdominal pain she had at [place] has dissipated), no nausea, no vomiting, no constipation and no diarrhea/loose stools Genitourinary: no dysuria and no hematuria (none at this time, however had hematuria at urgent care three days ago) Neurologic: no dizziness Hematologic / Lymphatic: no easy bleeding, no lymphadenopathy, no night sweats and no unexplained weight loss Physical Exam Constitutional: WD/WN, vitals as above no acute distress and not ill appearing Eyes: PERRL, conjunctivae normal, anicteric sclerae no nystagmus ENMT: external ear and nose normal, oropharynx normal Ears: no hearing impairment Neck: trachea midline, no thyromegaly trachea midline Respiratory: normal respiratory effort, lungs clear to auscultation no respiratory distress and no cough Cardiovascular: RRR, no murmur, no edema Vessels: no JVD and no carotid bruit Chest (Breasts): Chest: normal inspection of chest Gastrointestinal (Abdomen): normal bowel sounds, soft, nontender, no hepatosplenomegaly Inspection/Auscultation: abdomen normal to inspection and normal bowel sounds; abdomen not distended and no abdominal edema Percussion/Palpation: + abdomen tender (mild TTP in RUQ) and abdomen soft; no guarding, abdomen not rigid and no hepatosplenomegaly Musculoskeletal: no cyanosis or clubbing, extremities motor strength 5/5 Head/Neck/Chest: normocephalic and head atraumatic Skin: no rashes, warm and dry Neurologic: patellar DTR's 2+ bilat, sensation intact and PERRL, EOMI, accommodation nl, no face palsy, no dysarthria awake; not confused and not obtunded Psychiatric: A+Ox3, euthymic affect Orientation: alert and oriented x 3 Eye Contact: good eye contact Affect: no depressed affect Genitourinary: + CVA tenderness (mild on right) Lymphatic: no cervical or axillary lymphadenopathy no lymphadenopathy and no lymphedema Results & Data Vital Signs (Past 12 Hours) Vital Signs Temp Pulse Pulse Resp BP BP Pulse Ox 05/18/19 11:17 37 C 70 20 154/75 H 98 05/18/19 11:00 70 20 98 05/18/19 10:27 75 14 147/71 H 97 05/18/19 10:00 67 13 97 05/18/19 09:27 74 14 159/75 H 98 05/18/19 09:02 77
== END 2019-05-18 14:08 | disposition home or self-care (01) | DRG 687 ==
LOC: 1E 06:57 → SUATTDRO 06:57